=== PATIENT | female | born 1960 | race Caucasian/White ===

== ENCOUNTER → 2016-12-07 | Outpatient (CLI) | payer BC ==
[~2016-12-07] MED LIST: ESTR1PAT32 TD
--- NOTE | 2016-12-07 18:30 | Diagnostic Imaging Report ---
Bilateral screening mammogram The current study was also evaluated with a Computer Aided Detection (CAD) system. Indication: Screening. No current complaints stated on the questionnaire. COMPARISON: 08/27/14. FINDINGS: The breasts are composed of scattered fibroglandular densities. There are no masses, architectural distortion or suspicious cluster of calcification. Allowing for technique and positional differences, no suspicious change is seen. IMPRESSION: No significant change. ACR BI-RADS Category 2: Benign findings. Result letter will be mailed to the patient. Note: At least 10% of breast cancer is not imaged by mammography. Dictated by: Dictated on workstation # [id number]
== END ==
LOC: RAD 08:38
PROVIDERS: ATTEND Internal Medicine
DX: Z12.31 Encounter for screening mammogram for malignant neoplasm of breast (principal)
CPT/HCPCS: 77067

== ENCOUNTER 2017-03-07 12:51 | Outpatient (CLI) | payer BC ==
[~2017-03-07] VITALS: Ht 170.2 cm; Wt 88.5 kg
[2017-03-10] MEDS ORDERED: HYDR-3812 PO (09:44)
== END 2017-03-07 14:10 ==
LOC: PREOP 12:51
PROVIDERS: ATTEND Surgery
DX: Z01.818 Encounter for other preprocedural examination (principal); L72.9 Follicular cyst of the skin and subcutaneous tissue, unspecified

== ENCOUNTER 2017-03-10 07:44 | Day surgery (SDC) | payer BC ==
[~2017-03-10] VITALS: Ht 170.2 cm; Wt 88.5 kg
[2017-03-10] MEDS ORDERED: ceFAZolin 2 GM/NS 50 ML IV ONE (08:15)
[2017-03-10] MEDS ORDERED: LIDOCAINE PF 2% 10 ML (XYLOCAINE) AMP ONE (08:21)
[2017-03-10] MEDS ORDERED: proPOfol 200 MG/20 ML (DIPRIVAN) VIAL IV ONE (08:21)
[2017-03-10] MEDS ORDERED: MIDAZOLAM 2 MG/2 ML (VERSED) VIAL ONE (08:21)
[2017-03-10] MEDS ORDERED: LACTATED RINGERS 1,000 ML IV PRN (08:23)
[2017-03-10] MEDS ORDERED: fentaNYL INJECTION 100 MCG/2 ML AMP ONE (08:28)
[2017-03-10] MEDS ORDERED: LIDOCAINE/EPI 1%-1:100,000 (XYLOCAINE) 20ML ONE (08:32)
[2017-03-10 08:41] VITALS: BP 123/77
--- NOTE | 2017-03-10 09:14 | Progress Note-Pre Operative ---
Pre-Operative Progress Note H&P Reviewed The H&P was reviewed, patient examined and no changes noted. Date H&P Reviewed: March 10, 2017 Time H&P Reviewed: 09:11 Pre-Operative Diagnosis: Probable sebaceous cyst on back KATYA CASPER DO March 10, 2017 09:13
[2017-03-10] MEDS ORDERED: LACTATED RINGERS 1,000 ML IV ONE (09:39)
[2017-03-10] MEDS ORDERED: HYDR-3812 PO (09:44)
--- NOTE | 2017-03-10 09:44 | Progress Note-Post Operative ---
Post-Operative Progess Note Surgeon (s)/Fish Straightener (s) Surgeon KATYA CASPER DO Fish Straightener: NONE Pre-Operative Diagnosis Probable sebaceous cyst on back Post-Operative Diagnosis Same pending pathology Procedure & Operative Findings Date of Procedure 03/10/17 Procedure Performed/Findings Excision of back mass, 3cm incision Anesthesia Type IV sedation, with local lidocaine Estimated Blood Loss Estimated blood loss (mL): scant Specimens/Packing Specimens Removed back mass, appx 1cm in size KATYA CASPER DO March 10, 2017 09:44
--- NOTE | 2017-03-10 09:46 | Discharge Inst-Surgical ---
Discharge Inst-Surgical Depart Medication/Instructions New, Converted or Re-Newed RX: RX Given to Pt/Family Patient Instructions Follow up Appt: Make appointment for 1 week. Instructions: No strenuous activity. May shower in 24 hours, no tub bath or soaking. Use incentive spirometer at home as directed. No Smoking Skin/Wound Care: May remove bandages. You need to leave the white strips over incision on they will fall off on their own. Symptoms to Report: Appetite Changes, Extremity Discoloration, Numbness/Tingling, Swelling Increased , Bleeding Excessive, Eyesight Changes, Pain Increased, Urine Color Change, Constipation(Persistent), Fever over 101 degree F, Pain/Pressure in chest, Urinating Difficulty, Cough Up/Vomit Blood, Heart Beat Irreg/Pounding, Pain/ Pressure in jaw, Vaginal Bleeding Increase, Cramps in feet or legs, Lightheadedness, Pain/Pressure in shoulder, Diarrhea(Persistent), Memory Changes Suddenly, Questions/Concerns, Weight gain consecutive days, Dizziness/ Fainting, Nausea/Vomiting, Shortness of Breath, Weight gain over 2 pounds If questions or concerns contact your physician Or seek help at emergency department. Activity Activity as Tolerated: Yes Activity Instructions: Avoid Stress to Incision Driving Instructions: No Driving/Refer to Dr. Pantoja Discharge Diet: No Restrictions Diet After 24 Hours: Clear Liquid if Nauseous If Any Problems/Questions/Issu: Contact Your Physician, Go to Emergency Room Skin/Wound Care Infection Signs and Symptoms: Increased Redness, Foul Odor of Wound, Increased Drainage, Skin Itchy or Has a Rash, Increased Swelling, Temperature Above 101 F Bathing Instructions: Shower Stitches/Hilario/Dermabond Dis: Dermabond Ice Pack: Ice On and Off Site KATYA CASPER DO March 10, 2017 09:46
[2017-03-10 10:12] VITALS: BP 122/68
[2017-03-10 10:40] VITALS: BP 151/83
[2017-03-10 10:50] VITALS: BP 151/83
--- NOTE | 2017-03-10 13:31 | OPERATIVE REPORT ---
DATE OF SERVICE: 03/10/2017 PREOPERATIVE DIAGNOSIS: Back mass, right side. POSTOPERATIVE DIAGNOSIS: Back mass, right side, pending pathology. PROCEDURE: Excision of right back mass, approximately 3 cm incision. SURGEON: Dr. Wyatt. FINAL INSTALLER INSPECTOR: None. ANESTHESIA: IV sedation by STARCHER AND TENTER RANGE FEEDER. SPECIMEN: Right upper back mass, approximately 3 cm long x 2 cm deep, about 7 mm wide, down to the fascia of the muscle in the back. BLOOD LOSS: Scant. FLUIDS: Per anesthesia. POSTOPERATIVE CONDITION: Stable. INDICATIONS FOR PROCEDURE: The patient is a 57-year-old female who had a mass on her back that had become inflamed. It was I and D'd in the office. She then had to go to 4 of her children's graduations and now it has calmed down and she wants to get it removed. FINDINGS: The patient had a back mass. I used an elliptical incision to remove previous scar and then go around this mass. The incision was about 3 cm long x about 2 cm deep x about 7 mm wide. Removed the mass en bloc. PROCEDURE NOTE: After informed consent was obtained, the patient was brought to the operating room, placed on the table in the prone position. She was then sterilely prepped and draped in the normal fashion. Local lidocaine was used to infiltrate the skin around the area subcutaneously and deep, used about 10 mL. Then, made an incision with a #15 blade, carried down through the skin into subcutaneous tissue and then deepened down into the subcutaneous tissue with Bovie electrocautery. This was about 3 cm long, encompassing the previous incision and then going down about [address] to the fascia of the back muscle and then removing this en bloc. It was about 7 mm wide and passed off table and sent to pathology. Copiously irrigated with normal saline. Hemostasis was obtained using Bovie electrocautery. I looked around, there was no other obvious pathology. No obvious masses. At this point, closed the incision in 2 layers, closing the deep layer with a 3-0 Vicryl suture 3 interrupted sutures and then closed the skin with 4-0 Monocryl running subcuticular fashion. The area was cleaned and dried. Dermabond placed and then once it was dried, a Band-Aid. The patient was then transferred to the recovery room in stable condition. Sponge, instrument and needle count correct at the end of the case. Job ID: [id number] DocumentID: [id number] Dictated Date: 03/10/2017 09:50:35 Product Safety Associate Date: 03/10/2017 12:39:50 Dictated By: DO ZAHRA PALENCIA
== END 2017-03-10 10:50 | disposition home or self-care (01) ==
LOC: SDC 07:44
PROVIDERS: ATTEND Surgery
DX: L72.0 Epidermal cyst (principal); Z87.891 Personal history of nicotine dependence
CPT/HCPCS: 87081

== ENCOUNTER → 2018-10-09 | Outpatient (CLI) | payer BC ==
[~2018-10-09] MED LIST changes: +ACHD5005 PO
--- NOTE | 2018-10-09 14:02 | Diagnostic Imaging Report ---
INDICATION: Routine screening. COMPARISON: 12/07/2016 and 08/27/2014. TECHNIQUE: 2D and 3D bilateral screening mammography was performed with CAD. FINDINGS: Scattered fibroglandular densities are identified bilaterally. The parenchymal pattern is stable. No dominant mass or malignant appearing microcalcifications are seen. The axillae are unremarkable. IMPRESSION: No mammographic features suspicious for malignancy are identified. ACR BI-RADS Category 1: Negative. Result letter will be mailed to the patient. Note: At least 10% of breast cancer is not imaged by mammography. Dictated by: Dictated on workstation # [id number]
== END ==
LOC: RAD 09:41
PROVIDERS: ATTEND Internal Medicine
DX: Z12.31 Encounter for screening mammogram for malignant neoplasm of breast (principal)
CPT/HCPCS: 77067

== ENCOUNTER → 2019-10-10 | Outpatient (CLI) | payer BC ==
--- NOTE | 2019-10-10 20:00 | Diagnostic Imaging Report ---
INDICATION: Routine screening. Comparison is made with prior mammograms from 10/09/2018 and 12/07/2016. 2-D and 3-D bilateral screening mammography was performed. The current study was also evaluated with a Computer Aided Detection (CAD) system. 3-D tomosynthesis was also performed and reviewed. FINDINGS: Scattered fibroglandular densities are identified bilaterally. The parenchymal pattern appears to be stable. No dominant mass or malignant-appearing microcalcifications are seen. The axillae are unremarkable. IMPRESSION: No mammographic features suspicious for malignancy are identified. ACR BI-RADS Category 1: Negative. Result letter will be mailed to the patient. Note: At least 10% of breast cancer is not imaged by mammography. Dictated by: Dictated on workstation # [id number]
== END ==
LOC: RAD 15:02
PROVIDERS: ATTEND Internal Medicine
DX: Z12.31 Encounter for screening mammogram for malignant neoplasm of breast (principal)
CPT/HCPCS: 77067

== ENCOUNTER → 2022-11-15 | Outpatient (CLI) | payer BC ==
--- NOTE | 2022-11-15 15:24 | Diagnostic Imaging Report ---
INDICATION: Routine screening. Comparison is made with prior mammogram from 10/10/2019 and 10/09/2018. 2-D and 3-D bilateral screening mammography was performed with CAD. Scattered fibroglandular densities are identified bilaterally. The parenchymal pattern is stable. No mass or malignant-appearing microcalcifications are seen. Axillae are unremarkable. IMPRESSION: No mammographic features suspicious for malignancy are identified. ACR BI-RADS Category 1: Negative. Result letter will be mailed to the patient. Note: At least 10% of breast cancer is not imaged by mammography. BI-RADS Category 1 Dictated by: Dictated on workstation # [id number]
== END ==
LOC: RAD 07:52
PROVIDERS: ATTEND Nurse Practitioner Family
DX: Z12.31 Encounter for screening mammogram for malignant neoplasm of breast (principal)
CPT/HCPCS: 77063; 77067